=== PATIENT | male | born 1930 | race Caucasian/White ===

== ENCOUNTER → 2018-12-13 | Emergency (ER) | payer MEDICARE, OTHER ==
[~2018-12-13] VITALS: Ht 190.5 cm; Wt 117.0 kg
[~2018-12-13] MED LIST: CEPH250T PO; CefTRIAXone 250MG IM Kit w/LIDOcaine IM ONE; HYDR-4383 PO; HYDROcodone/acetaminophen 5mg/325mg tablet PO ONE; cephalexin 500mg capsule PO ONE; diphenhydrAMINE 50 mg/ml inj IV ONE; famotidine/PF 10 mg/ml inj IV ONE; normal saline 1000ml 1,000 ML IV ONE
--- NOTE | 2018-12-13 12:45 | NUR ---
SPOKE TO DR BLUM REGARDING PATIENT WANTS SEPSIS LAB ORDERS
[2018-12-13 13:11] LABS: BASOPHILS # (AUTO) 0.1 X10'3 (0-0.2); EOSINOPHILS # (AUTO) 0.5 X10'3 (0-0.9); EOSINOPHILS % (AUTO) 7.1 % (0-6); HEMATOCRIT 42.8 % (42.0-52.0); LYMPHOCYTES # (AUTO) 0.8 X10'3 (1.1-4.8); LYMPHOCYTES % (AUTO) 10.7 % (21-51); MEAN CORPUSCULAR HGB CONC 32.6 g/dL (33.0-36.5); MEAN CORPUSCULAR VOLUME 88.8 FL (78-98); MEAN PLATELET VOLUME 7.1 FL (7.4-10.4); MONOCYTES # (AUTO) 0.5 X10'3 (0-0.9); MONOCYTES % (AUTO) 6.4 % (2-12); NEUTROPHILS # (AUTO) 5.5 X10'3 (1.8-7.7); NEUTROPHILS % (AUTO) 74.8 % (42-75); PLATELET COUNT 277 X10'3 (140-440); RED BLOOD COUNT 4.82 X10'6 (4.70-6.10); RED CELL DISTRIBUTION WIDTH 19.5 % (11.5-14.5); WHITE BLOOD COUNT 7.4 X10'3 (4.5-11.0)
[2018-12-13 13:33] LABS: ANISOCYTOSIS 2+; PLATELET ESTIMATE NORMAL
[2018-12-13 13:37] LABS: PARTIAL THROMBOPLASTIN TIME 31 SECONDS (22-32)
[2018-12-13 13:49] LABS: ANION GAP 6 (8-16); BILIRUBIN,TOTAL 0.4 MG/DL (0.1-1.0); BLOOD UREA NITROGEN 20 MG/DL (7-18); BUN/CREATININE RATIO 33.9 (5.4-32.0); CALCIUM 8.8 MG/DL (8.5-10.1); CHLORIDE 107 MMOL/L (99-107); CREATININE 0.59 MG/DL (0.60-1.10); GLUCOSE 193 MG/DL (70-104); MAGNESIUM 1.7 MG/DL (1.5-2.4); SODIUM 142 MMOL/L (135-145); TOTAL CARBON DIOXIDE 28.9 MMOL/L (24-32); TOTAL PROTEIN 6.2 G/DL (6.4-8.2); eGFR > 90 ML/MIN
[2018-12-13 13:50] LABS: ALANINE AMINOTRANSFERASE 17 U/L (12-78); ALBUMIN 2.8 G/DL (3.4-5.0); ALBUMIN/GLOBULIN RATIO 0.8 (1.1-1.5); ALKALINE PHOSPHATASE 60 IU/L (46-116); ASPARTATE AMINO TRANSFERASE 12 U/L (10-37)
--- NOTE | 2018-12-13 16:00 | NUR ---
CONFUSED ON AND OFF. YELLING OUT ON AND OFF. REORIENTED TO SURROUNDING AND EVENTS. STRAIGHT CATH FOR SPECIMEN AND SENT TO THE LAB. TOLERATED FAIR. RESTING ON GURNEY WITH SIDERAILS UP.
[2018-12-13 16:11] VITALS: BP 194/115
[2018-12-13 16:15] LABS: CLARITY,URINE SLIGHTLY CLOUDY (Clear); COLOR,URINE YELLOW (Yellow); GLUCOSE, URINE NEGATIVE (Neg); KETONES,URINE TRACE mg/dl (Neg); LEUKOCYTE ESTERASE ,URINE TRACE (Neg); NITRITES, URINE NEGATIVE (Neg); OCCULT BLOOD,URINE NEGATIVE (Neg); PH,URINE 5.5 (4.8-8.0); PROTEIN,URINE NEGATIVE (Neg)
[2018-12-13 16:16] LABS: UA COLLECTION TYPE STRAIGHT CATH
[2018-12-13 16:26] LABS: FINE GRANULAR CAST 0-3 /LPF (NEGATIVE); MUCUS STRANDS MANY /LPF (Neg); RBC,URINE 0-2 /HPF (0-2); SQUAMOUS EPITHELIAL CELL,UR FEW /LPF (FEW); TRANSITIONAL EPI CELLS,URINE FEW /HPF
[2018-12-13 16:27] LABS: BACTERIA,URINE NONE SEEN /HPF (Neg); CAL OXALATE CRYSTALS 3+ /HPF (NEGATIVE); RENAL CELLS, URINE FEW /HPF
--- NOTE | 2018-12-13 16:44 | NUR ---
VASCULAR STUDY IN PROGRESS
--- NOTE | 2018-12-13 18:05 | NUR ---
PATIENT YELLING OUT THAT HE IS BLEEDING. PATIENT HAS PULLED OUT IV AND STATES "I DON'T NEED THIS THING". GAUZE DRESSING OVER IV SITE.
--- NOTE | 2018-12-13 19:16 | NUR ---
PT MEDICATED WITH ANTIBIOTICS FOR UTI, TO BE DISCHARGED
== END | disposition home or self-care (01) ==
LOC: ER 12:20
DX: M17.12 Unilateral primary osteoarthritis, left knee (principal); M25.462 Effusion, left knee; R60.0 Localized edema; Z86.718 Personal history of other venous thrombosis and embolism; Z88.5 Allergy status to narcotic agent
CPT/HCPCS: 36415; 71045; 73560; 80053; 81001; 83605; 83735; 84145; 85025; 85610; 85730; 87040; 87088; 93005; 93971; 96372; 96374; 96375; 99284; J0696; J1200; J3490; J7030; P9612